=== PATIENT | male | born 1995 | race Caucasian/White ===

== ENCOUNTER 2018-02-03 19:05 | Emergency (ER) | payer SELFPAY ==
[~2018-02-03] VITALS: Ht 175.3 cm; Wt 63.9 kg
[2018-02-03 19:07] VITALS: BP 132/76
[2018-02-03] MEDS ORDERED: LIDOCAINE 1%-EPI 1:100K, 30ML ONE (19:25)
[2018-02-03] MEDS ORDERED: LIDOCAINE 2%, 10ML INFIL ONE (20:00)
[2018-02-03] MEDS ORDERED: BACITRACIN ZINC OINT 500U/GM, 0.9 GM ONE (20:19)
== END 2018-02-03 20:56 | disposition home or self-care (01) ==
LOC: ED 20:53
DX: S61.012A Laceration without foreign body of left thumb without damage to nail, initial encounter (principal); W26.8XXA Contact with other sharp object(s), not elsewhere classified, initial encounter; Y93.89 Activity, other specified; Y92.098 Other place in other non-institutional residence as the place of occurrence of the external cause; Y99.8 Other external cause status
CPT/HCPCS: 12042; 99284; J3490